=== PATIENT | female | born 1975 | race Caucasian/White ===

== ENCOUNTER 2017-10-14 14:11 | Emergency (ER) | payer SELFPAY ==
[~2017-10-14] VITALS: Ht 157.5 cm; Wt 102.1 kg
[2017-10-14 14:11] VITALS: BP_SYST 126
[2017-10-14] MEDS ORDERED: PROMETHAZINE HCL 25 MG/ML AMP IM ONE (15:15)
[2017-10-14 15:16] LABS: BASOPHILS # (AUTO) 0.2 K/uL (0.0-0.2); BASOPHILS % (AUTO) 1.8 % (0.0-2.0); EOSINOPHILS # (AUTO) 0.3 K/uL (0.0-0.4); EOSINOPHILS % (AUTO) 3.1 % (0.0-4.0); HEMATOCRIT 35.2 % (36-48); LYMPHOCYTES # (AUTO) 2.5 K/uL (1.0-5.5); LYMPHOCYTES % (AUTO) 28.2 % (20.5-51.5); MEAN CORPUSCULAR HEMOGLOBIN 27 pg (27-31); MEAN CORPUSCULAR HGB CONC 34 % (32-36); MEAN CORPUSCULAR VOLUME 79 fL (79.0-98.0); MONOCYTES # (AUTO) 0.5 K/uL (0.0-1.0); MONOCYTES % (AUTO) 5.2 % (1.7-9.3); NEUTROPHILS # (AUTO) 5.4 K/uL (1.8-7.7); NEUTROPHILS % (AUTO) 61.7 % (40.0-70.0); PLATELET COUNT (AUTO) 396 K/uL (130-430); RED BLOOD CELL COUNT(AUTO) 4.47 MIL/uL (4.2-6.2); RED CELL DISTRIBUTION WIDTH 14.2 % (9.0-15.0); WHITE BLOOD COUNT (AUTO) 8.9 K/uL (4.8-10.8)
[2017-10-14 15:27] LABS: CALCIUM 9.1 mg/dL (8.4-11.0); CREATININE 0.82 mg/dL (0.55-1.30); POTASSIUM 3.8 mmol/L (3.5-5.1)
[2017-10-14 15:35] LABS: ALBUMIN 3.3 g/dL (3.4-4.8); TOTAL BILIRUBIN 0.2 mg/dL (0.0-1.0)
[2017-10-14 16:57] VITALS: BP_SYST 124
== END 2017-10-14 16:55 | disposition home or self-care (01) ==
LOC: SED 14:11
DX: H81.10 Benign paroxysmal vertigo, unspecified ear (principal); I10 Essential (primary) hypertension
CPT/HCPCS: 36415; 70450; 71045; 80053; 81025; 84484; 85025; 93005; 96372; 99285; J2550